=== PATIENT | female | born 1980 ===

== ENCOUNTER 2018-11-25 09:21 | Outpatient (CLI) | payer OTHER | END 2018-11-25 09:29 | disposition home or self-care (01) | LOC: RAD 09:21 | DX: R19.00 Intra-abdominal and pelvic swelling, mass and lump, unspecified site (principal); D64.89 Other specified anemias; N39.0 Urinary tract infection, site not specified; R79.89 Other specified abnormal findings of blood chemistry; Z01.818 Encounter for other preprocedural examination ==

== ENCOUNTER 2018-12-20 06:02 | Day surgery (SDC) | payer OTHER | END 2018-12-20 16:45 | disposition home or self-care (01) | LOC: CIR.AMB 06:02 | DX: N80.1 Endometriosis of ovary (principal); N83.291 Other ovarian cyst, right side ==

== ENCOUNTER 2021-02-11 08:00 | Outpatient (CLI) | payer OTHER | END 2021-02-11 08:30 | disposition home or self-care (01) | LOC: PPH VACUNA 08:00 | PROVIDERS: ATTEND Emergency Medicine Pediatric Emergency Medicine | DX: Z23 Encounter for immunization (principal) ==